=== PATIENT | male | born 2000 | race Caucasian/White ===

== ENCOUNTER 2024-01-10 09:49 | Observation (INO) ==
--- NOTE | 2024-01-09 09:19 | Anesthesiology Consultation ---
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 Chart Review Chart Review: Acceptable Risk for Surgery and Patient NOT seen in Pre Admission Testing History Surgery Operation Date: 01/10/24 11:00 Proposed Procedures p Right Ankle Tibia Shaft Open Reduction - Ameya Jean DO s versus Closed Reduction Intramedullary Nailing - Ameya Jean DO Height/Weight Height: 5 ft 10 in Weight: 83 kg Allergies Allergy/AdvReac Type Severity Reaction Status Date / Time No Known Allergies Allergy Verified 01/10/24 10:22 Medications Home Medications Medication Instructions Recorded Confirmed Last Taken ibuprofen 800 mg tablet 800 mg PO Q8H PRN Pain 01/10/24 01/10/24 01/09/24 23:00 oxycodone 5 mg tablet 5 mg PO Q4H PRN Pain 01/10/24 01/10/24 01/10/24 08:00 Past Medical History Medical History Asthma exercise induced>prn inhaler Past Surgical History Surgical History S/P hardware removal right elbow History of open reduction and internal fixation (ORIF) procedure right elbow>hardware removed Social History Uses zyn nicotine pouches per PAT RN notations. Hx Alcohol Use: Yes Alcohol type: beer alcohol intake frequency: a few times a month Hx Substance Use: No (not currently, former substance user-marijuana per PAT RN notation) Physical Exam Vital Signs Last Vital Signs Pulse 76 01/10/24 10:27 Resp 20 01/10/24 10:27 BP 130/79 01/10/24 10:27 Pulse Ox 97 01/10/24 10:27 O2 Del Method Room Air 01/10/24 10:27
[~2024-01-10 09:49] MED LIST: ROPIVACAINE 0.5% 5 MG/ML 30 ML VIAL ONE; SODIUM CHLORIDE 0.9% PF INJ 10 ML VIAL ONE
[2024-01-10] MEDS ORDERED: PROPOFOL IV EMULSION 10 MG/ML 20 ML VIAL IV ONE ×2 (09:55→09:56)
[2024-01-10] MEDS ORDERED: MIDAZOLAM HCL 1 MG/ML 2ML VIAL ONE (09:56)
[2024-01-10] MEDS ORDERED: ONDANSETRON INJ 2 MG/ML 2 ML VIAL ONE ×2 (09:56→13:37)
[2024-01-10] MEDS ORDERED: DEXAMETHASONE SOD INJ 4 MG/ML VIAL ONE (09:56)
[2024-01-10] MEDS ORDERED: fentaNYL citrate PF 100 MCG/2 ML VIAL ONE ×2 (09:56→14:04)
[2024-01-10] MEDS ORDERED: LIDOCAINE 2% 2 ML VIAL/AMP(20MG/ML) INFIL ONE (09:58)
[2024-01-10] MEDS ORDERED: DROPERIDOL 5 MG/2 ML VIAL IV PRN (10:40)
[2024-01-10] MEDS ORDERED: ATROPINE SULFATE 0.1 MG/ML 10ML SYR IV PRN (10:40)
--- NOTE | 2024-01-10 10:41 | History & Physical Bridge Note ---
Date of Service January 10, 2024 History & Physical Bridge Note I have examined the patient, reviewed the History & Physical and in the interval since the performance of the History & Physical I have noted the following changes of clinical significance: no changes noted 23-year-old individual sustained a closed tibial shaft fracture during a football game. He and his father presented to the office this week. We discussed both operative and nonoperative management. I discussed the risks of both procedures in great detail with the patient and his father. Through shared decision making model, due to the potential for earlier weightbearing, sooner time to radiographic union the patient and his father opted for operative management. We discussed the risks of surgery to include but not limited to loss of life/limb, DVT, infection, nonunion, malunion, hardware complication or failure, prominent hardware, need for additional surgery, knee pain. Patient understands these risks and wishes to proceed. No guarantee was stated or implied.
[2024-01-10] MEDS: LR 15ML/HR IV SCH (10:50)
[2024-01-10] MEDS: ceFAZolin 2000MG 2,000 MG/15 ML SYR IV ONE (11:30)
--- OUTSIDE RECORDS SUMMARY | 2024-01-10 11:38 | External Medical Summary | Summary of Care ---
Author Name Unknown Organization [facility] Address [address] [place] [address] Phone [phone] Care Team Providers Care Group Sales Representative Name Role Phone Unavailable Primary Care Provider Unavailabl e Reason for Referral * Evaluate & Treat - Unlimited Visits (Within 3 days (urgent)) - Pending Review Specialty Diagnoses / Procedures Referred By Contac t Referred To Contact Orthopaedic Surgery / Orthopedics Diagnoses Closed nondisplaced oblique fracture of shaft of right tibia, initial encounter Raissa Blair CRNP [address] [place] [address] Referral ID Status Reason Start Date Expiration Date Visits Requested Visits Authorized [id number] Pending Review Specialty Services Required [phone] Question Answer Referral Priority Within 3 days (urgent) Where should this appointment be scheduled? [facility] What body part is the patient being seen for? Foot/Ankle/Calf - right tibia What condition is the patient being seen for? Fracture including related infection Comments Right tibia fracture due to injury while playing football. Discharge Order Reason for Visit * Reason Comments Leg Pain * Auth/Cert Specialty Diagnoses / Procedures Referred By Contac t Referred To Contact [facility] [address] [place] [address] Phone: [phone] Emergency Medicine [address] [address] Referral ID Status Reason Start Date Expiration Date Visits Re quested Visits Authorized [id number] Encounter Details Date Type Department Care Team ([facility] st Contact Info) Description 01/06/2024 3:53 PM EDT - 01/06/2024 6:14 PM EDT Emergency [facility] Emergency Department ([facility]) [address] [place] [address] Dipak Brooklyn Yaquelin, DO [address] [place] [address] Closed nondisplaced oblique fracture of shaft of right tibia, initial encounter (Primary Dx) Discharge Disposition: Home - Self Care Allergies No known active allergiesdocumented as of this encounter (statuses as of 01/07/2024) Medications Medication Sig Dispensed Refills Start Date End Date Status oxyCODONE-Acetaminophe n 5-325 MG Oral Tablet (Percocet) Take 1 Tablet by mouth every 6 hours as needed for Pain, Severe for up to 6 doses. 6 Tablet 01/06/2024 Active documented as of this encounter (statuses as of 01/07/2024) Active Problems No known active problems documented as of this encounter (statuses as of 01/07/2024) Social History Tobacco Use Types Packs/Day Years Used Date Smoking Tobacco: Never Smokeless Tobacco: Never Alcohol Use Standard Drinks/Week Comments Yes 0 (1 standard drink = 0.6 oz pur e alcohol) occ Utilities Answer Date Recorded Do you have trouble paying y our heating, water, or electric bill? (Adult - for ages 18 years and over) Not on file 08/29/2023 Is your family able to pay t he heat, water, or electric bill? (Household - for ages 0-17 years) Not on file 08/29/2023 Does your family have access to good internet? (Household - for ages 0-17 years) Not on file 08/29/2023 Social Connections Answer Date Recorded How often do you feel lonely or isolated from those around you? (Adult - for ages 18 years and over) Not on file 08/29/2023 Sex and Gender Information Value Date Recorded Sex Assigned at Not on file Gender Identity Not on file Sexual Orientation Not on file Job Start Date Occupation Industry Not on file Not on file Not on file documented as of this encounter Last Filed Vital Signs Vital Sign Reading Time Taken Comments Blood Pressure 126/80 01/06/2024 3:55 PM EDT Pulse 86 01/06/2024 3:55 PM EDT Temperature 36.5 C (97.7 F) 01/06/2024 3:55 PM ED T Respiratory Rate 16 01/06/2024 3:55 PM EDT Oxygen Saturation 100% 01/06/2024 3:55 PM EDT Inhaled Oxygen Concentration - - Weight 81.6 kg (180 lb) 01/06/2024 3:55 PM EDT Height 177.8 cm (5' 10") 01/06/2024 3:55 PM EDT Body Mass Index 25.83 01/06/2024 3:55 PM EDT documented in this encounter ED Notes * Abel Gama RN - 01/06/2024 3:53 PM EDT Pt injured rt lower leg while playing football 1` hr ago. Hurts to bear weight on that leg. Ice pack provided. documented in this encounter Miscellaneous Notes * Pt Handout (on AVS) - Raissa Blair CRNP - 01/06/2024 6:06 PM EDT [id number] Medicine for Pain Medicines can help to block pain, decrease inflammation, and treat related problems. More than 1 medicine may be used to treat your pain. Medicines may be changed as you feel better, or if they causeside effects. Medicines Examples What they do Possible side effects Nonopioid NSAIDs aspirin, a, ibuprofen, naproxen Reduce pain chemicals at the site of pain. NSAIDs can reduce joint and soft tissue inflammation. Nausea, stomach pain and irritation, ulcers, indigestion, bleeding, kidney, and liver problems. Certain NSAIDs may increase the risk for cardiovascular disease and stroke in some people. Smoking and alcohol can make the risk worse. Talk with your healthcare provider. Opioids morphine and similar medicines, often called narcotics Reduce feelings or perception of pain. Used for moderate to severe pain. Nausea, vomiting, itching, drowsiness or sleepiness, constipation, slowed breathing Other medicines corticosteroids, antinausea, antidepressants, antiseizure medicines Reduce swelling, burning or tingling pain, or certain side effects of pain medicines, such as nausea or vomiting Your healthcare provider will explain the possible side effects of these medicines. Anesthetics (local, injected) lidocaine, benzocaine, and medicines used by anesthesiologists Stop pain signals from reaching the brain by blocking feeling in the treated area Nausea, low blood pressure, fever, slowed breathing, dizziness, weakness, fainting, seizures, heart attack When to call your healthcare provider Call your healthcare provider right away (or have a family member call) if any of the following occur: Unrelieved pain Side effects, including constipation or uncontrolled nausea, that interfere with daily activities If you have extreme sleepiness or breathing problems, call 911. Other precautions Ask your healthcare provider or pharmacist how to get rid of your pain medicines safely when youstop using them. Never share your pain medicines with anyone. Store your medicines in a safe place so they can?t be stolen. If you think your medicine has been stolen or lost, tell your healthcare provider right away. Last Reviewed Date: 2021 00:00:00 [id number] [employer]. All rights reserved. This information is not intended as a substitute for professional medical care. Always follow your healthcare professional's instructions. * Pt Handout (on AVS) - Raissa Blair CRNP - 01/06/2024 6:06 PM EDT Images from the original note were not included. [id number] Leg Fracture You have a break (fracture) of the leg. A fracture is treated with a splint, cast, or special boot.It will usually take about 8 to 12 weeks for the fracture to heal, but it can take longer in some cases. If you have a severe injury, you may need surgery to fix it. Home care Follow these guidelines when caring for yourself at home: You will be given a splint, cast, boot, or other device to keep the injured area from moving. Unless you were told otherwise, use crutches or a walker. Don?t put weight on the injured leg until your healthcare provider says you can do so. (You can rent crutches and a walker at many pharmacies and surgical or orthopedic supply stores.) Keep your leg elevated (raised) to reduce pain and swelling. When sleeping, put a pillow under the injured leg. When sitting, support the injured leg so it's above your heart. This is very important during the first 2 days (48 hours). Put an ice pack on the injured area. Do this for 20 minutes every 1 to 2 hours the first day forpain relief. You can make an ice pack by wrapping a plastic bag of ice cubes in a thin towel. As the ice melts, be careful that the cast, splint, or boot doesn?t get wet. You can put the ice pack directly over the splint or cast. Continue using the ice pack 3 to 4 times a day for the next 2 days. Then use the ice pack as needed to ease pain and swelling. Keep the cast, splint, or boot completely dry at all times. Bathe with your cast, splint, or boot out of the water. Protect it with 2 layers of plastic, such as 2 plastic bags, rubber-banded or taped at the top end. Or use a waterproof shield. If a boot or fiberglass cast or splint gets wet, youcan dry it with a department chairperson on the cool setting. You may use acetaminophen or ibuprofen to control pain, unless another pain medicine was prescribed. If you have chronic liver or kidney disease, talk with your healthcare provider before using these medicines. Also talk with your provider if you?ve had a stomach ulcer or gastrointestinal bleeding, or if you take a blood thinner. Don?t put creams or objects under the cast if you have itching. Follow-up care Follow up with your healthcare provider as advised. This is to make sure the bone is healing the way it should. If a splint was put on, it may be converted to a cast at your next visit. X-rays may be taken. You will be told of any new findings that may affect your care. When to get medical advice Call your healthcare provider right away if any of the following occur: The cast or splint cracks The plaster cast or splint becomes wet or soft The fiberglass cast or splint stays wet for more than 24 hours Bad odor from the cast or wound fluid stains the cast Tightness or pain under the cast or splint gets worse Toes become swollen, cold, blue, numb, or tingly You can?t move your toes Skin around cast or splint becomes red or irritated Fever of 100.4F (38C) or higher, or as directed by your healthcare provider Shaking chills Last Reviewed Date: 2022 00:00:00 [id number] [employer]. All rights reserved. This information is not intended as a substitute for professional medical care. Always follow your healthcare professional's instructions. * Pt Handout (on AVS) - Raissa Blair CRNP - 01/06/2024 6:06 PM EDT [id number] Splints and Casts Splints and casts are used to help support and protect many bone and soft tissue injuries. They keep an injured area from moving. Both splints and casts can help fix broken bones and other injuries or conditions by: Increasing blood supply to the injured area Limiting movement to help decrease pain Keeping the area stable to help prevent further injury Decreasing swelling or muscle spasm Splints don?t fully enclose an injured area. This makes them ideal to use for many acute or sudden injuries where swelling is likely to occur. This includes acute fractures or sprains. Splints help to ease pain, protect fractures, and keep an injured area from moving before any orthopedic treatmentis done. Casts fully enclose an injured area in either plaster or fiberglass. Because of this, they are better able to keep the injured area still and hold it in place. But casts can also have more problems. For the best results, both casts and splints are mainly used only for a short time. That?s because keeping an area still for too long can cause problems such as joint stiffness and long-lasting (chronic) pain. If you are put in a splint or cast, you must be watched closely to be sure you recover correctly. There are many different kinds of splints and casts. Your healthcare provider will decide which is best for you. This will depend on the area of your body that is being treated. It will also depend on the stage of your injury, as well as how severe and how stable it is. Each type of splint and castis best suited for certain conditions. There are also different ways of applying splints and casts. Home care Follow your healthcare provider?s instructions when using the splint or cast. Always ask when the splint or cast must be worn. Always ask when the splint or cast can be removed. Check the splint or cast each day, and as needed, for any loose objects. Check the splint or cast for defects such as nicks or tears. Follow the cow rider's or provider?s instructions on how to clean the splint or cast. It may have fabric areas that can be washed. If the splint or cast has straps, tighten the straps if they get loose. The straps should feel firm and secure, but not too tight. The splint or cast should feel comfortable. Your toes should wiggle freely. The provider may also use an elastic bandage. Follow the provider?s instructions on how to use the elastic bandage. Always ask when to use the elastic bandage with, or without, the splint or cast.Always ask when the elastic bandage needs to be worn. Always ask when the elastic bandage needs to be removed. Check how the injured area is healing. Always check the skin around the injury for irritation ordamage caused by the splint or cast. Call your provider if you notice any problems or have any concerns. If you have any questions on how to use the splint or cast, contact your provider. Follow-up care Follow up as advised with your healthcare provider. Depending on the injury, you may need to see anorthopedic or bone doctor. You may also need physical therapy to further check or treat your injuryor condition. When to get medical advice Call your healthcare provider right away if any of these occur: You have more pain, swelling, or instability when wearing the splint or cast. Your injured area has skin that changes color (to red, blue, or purple), sores, blisters, infection, or irritation. The injured region feels cool to the touch. Or you have a numb and tingly feeling when wearing the splint or cast. The splint or cast does not fit correctly. You can?t put weight on the injured area when wearing the splint or cast if you are allowed to do so. You have questions about using the splint or cast. The splint or cast gets wet. Last Reviewed Date: 2021 00:00:00 [id number] [employer]. All rights reserved. This information is not intended as a substitute for professional medical care. Always follow your healthcare professional's instructions. * Pt Handout (on AVS) - Raissa Blair CRNP - 01/06/2024 6:06 PM EDT Images from the original note were not included. [id number] RICE RICE stands for rest, ice, compression, and elevation. Doing these things helps limit pain and swelling after an injury. RICE also helps injuries heal faster. Use RICE for sprains, strains, and severe bruises or bumps. Follow the tips on this handout and begin RICE as soon as possible after an injury. Rest Pain is your body?s way of telling you to rest an injured area. Whether you have hurt an elbow, hand, foot, or knee, limiting its use will prevent further injury and help you heal. Ice Applying ice right after an injury helps prevent swelling and reduce pain. Don?t place ice directlyon your skin. Use a cold pack. Or make an ice pack by putting ice cubes in a plastic bag that seals at the top. Wrap the cold pack or ice pack in a thin cloth. Place it over the injured area. Ice for 10 minutes every 3 hours. Don?t ice for more than 20 minutes at a time. Compression Putting pressure (compression) on an injury helps prevent swelling and provides support. Wrap the injured area firmly with an elastic bandage. If your hand or foot tingles, becomes discolored, or feels cold to the touch, the bandage may be too tight. Rewrap it more loosely. If your bandage becomes too loose, rewrap it. Don't wear an elastic bandage overnight. Elevation Keeping an injury elevated helps reduce swelling, pain, and throbbing. Elevation is most effective when the injury is kept elevated higher than the heart. When to call your healthcare provider Call your healthcare provider if you notice any of the following: Fingers or toes feel numb, tingly, are cold to the touch, or change color. Skin looks shiny or tight. Pain, swelling, or bruising gets worse and isn't improved with elevation. Signs of infection. These include warm skin, redness, fluid leaking, or bad smell coming from the injured body part. Last Reviewed Date: 2021 00:00:00 [id number] [employer]. All rights reserved. This information is not intended as a substitute for professional medical care. Always follow your healthcare professional's instructions. documented in this encounter Plan of Treatment Pending Results Name Type Priority Associated Diagnoses Date /Time Splint Application Procedure Report Routine 01/06/2024 5:50 PM EDT Scheduled Referrals Name Type Priority Associated Diagnoses Orde r Schedule ORTHOPAEDICS REFERRAL OP Referral Within 3 days (urgent) Closed nondisplaced oblique fracture of shaft of right tibia, initial encounter Ordered: 01/06/2024 Health Maintenance Due Date Last Done Comments Depression Screening 2014 HIV Screening 2017 Hepatitis C Screening 02/21/2020 Yearly Wellness Visit 10/30/2020 10/31/2019 , 05/18/2018, 05/17/2017, Additional history exists DTap/Tdap Vaccines (7 - Td or Tdap) 07/31/2023 07/30/2013, 03/01/2006, 05/23/2003, Additional history exists COVID-19 Vaccine ( season) 2023 08/11/2020, 07/14/2020 Influenza Vaccine (FLU shot) (#1) 2023 01/21/2009, 01/21/2009, 12/16/2008, Additional history exists Hepatitis B Vaccine Completed 2002, 2002, 2002 HPV (Gardasil) Vaccine Completed 05/17/2016, 2015 MENINGOCOCCAL (MENACTRA/MENVEO) Completed 05/18/2018, 07/30/2013 Pneumococcal Vaccine: Pediatrics (0 to 5 Years) and At-Risk Patients (6 to 64 Years) Aged Out No longer eligible based on patient's age to complete this topic documented as of this encounter Medical Devices Not on filedocumented as of this encounter Procedures Procedure Name Priority Date/Time Associated Diagnosis Comments SPLINT APPLICATION Routine 01/06/2024 5: 50 PM EDT XR ANKLE 3 OR MORE VIEWS STAT 01/06/2024 5:19 PM EDT XR TIB/FIB 2 VIEWS STAT 01/06/2024 5: 19 PM EDT XR KNEE 4 OR MORE VIEWS STAT 01/06/2024 5:19 PM EDT documented in this encounter Results * XR KNEE 4 OR MORE VIEWS (01/06/2024 5:19 PM EDT) Anatomical Region Laterality Modality Knee, Lower Extremity Computed R adiography 01/06/2024 5:24 PM EDT Narrative 01/06/2024 5:22 PM EDT EXAM: XR TIB/FIB 2 VIEWS; XR KNEE 4 OR MORE VIEWS; XR ANKLE 3 OR MORE VIEWS HISTORY: injury COMPARISON: None available. FINDINGS: Acute obliquely oriented fracture of the distal tibial diaphysis without significant displacement. No significant knee joint effusion. No acute fracture of the knee or ankle. Knee and ankle joint spaces are preserved. The ankle mortise is congruent. IMPRESSION: 1. Acute obliquely oriented fracture of the distal tibial diaphysis without significant displacement. 2. No acute fracture of the knee or ankle. Procedure Note Joi Franco MD - 01/06/2024 EXAM: XR TIB/FIB 2 VIEWS; XR KNEE 4 OR MORE VIEWS; XR ANKLE 3 OR MORE VIEWS HISTORY: injury COMPARISON: None available. FINDINGS: Acute obliquely oriented fracture of the distal tibial diaphysis withoutsignificant displacement. No significant knee joint effusion. No acutefracture of the knee or ankle. Knee and ankle joint spaces are preserved.The ankle mortise is congruent. IMPRESSION: 1. Acute obliquely oriented fracture of the distal tibial diaphysiswithout significant displacement. 2. No acute fracture of the knee or ankle. Raissa [facility] ([facility]) * XR ANKLE 3 OR MORE VIEWS (01/06/2024 5:19 PM EDT) Anatomical Region Laterality Modality Ankle, Lower Extremity Computed Radiography 01/06/2024 5:24 PM EDT Narrative 01/06/2024 5:22 PM EDT EXAM: XR TIB/FIB 2 VIEWS; XR KNEE 4 OR MORE VIEWS; XR ANKLE 3 OR MORE VIEWS HISTORY: injury COMPARISON: None available. FINDINGS: Acute obliquely oriented fracture of the distal tibial diaphysis without significant displacement. No significant knee joint effusion. No acute fracture of the knee or ankle. Knee and ankle joint spaces are preserved. The ankle mortise is congruent. IMPRESSION: 1. Acute obliquely oriented fracture of the distal tibial diaphysis without significant displacement. 2. No acute fracture of the knee or ankle. Procedure Note Joi Franco MD - 01/06/2024 EXAM: XR TIB/FIB 2 VIEWS; XR KNEE 4 OR MORE VIEWS; XR ANKLE 3 OR MORE VIEWS HISTORY: injury COMPARISON: None available. FINDINGS: Acute obliquely oriented fracture of the distal tibial diaphysis withoutsignificant displacement. No significant knee joint effusion. No acutefracture of the knee or ankle. Knee and ankle joint spaces are preserved.The ankle mortise is congruent. IMPRESSION: 1. Acute obliquely oriented fracture of the distal tibial diaphysiswithout significant displacement. 2. No acute fracture of the knee or ankle. Raissa [facility] ([facility]) * XR TIB/FIB 2 VIEWS (01/06/2024 5:19 PM EDT) Anatomical Region Laterality Modality Lower Extremity, TibFib Computed Radiography 01/06/2024 5:24 PM EDT Narrative 01/06/2024 5:22 PM EDT EXAM: XR TIB/FIB 2 VIEWS; XR KNEE 4 OR MORE VIEWS; XR ANKLE 3 OR MORE VIEWS HISTORY: injury COMPARISON: None available. FINDINGS: Acute obliquely oriented fracture of the distal tibial diaphysis without significant displacement. No significant knee joint effusion. No acute fracture of the knee or ankle. Knee and ankle joint spaces are preserved. The ankle mortise is congruent. IMPRESSION: 1. Acute obliquely oriented fracture of the distal tibial diaphysis without significant displacement. 2. No acute fracture of the knee or ankle. Procedure Note Joi Franco MD - 01/06/2024 EXAM: XR TIB/FIB 2 VIEWS; XR KNEE 4 OR MORE VIEWS; XR ANKLE 3 OR MORE VIEWS HISTORY: injury COMPARISON: None available. FINDINGS: Acute obliquely oriented fracture of the distal tibial diaphysis withoutsignificant displacement. No significant knee joint effusion. No acutefracture of the knee or ankle. Knee and ankle joint spaces are preserved.The ankle mortise is congruent. IMPRESSION: 1. Acute obliquely oriented fracture of the distal tibial diaphysiswithout significant displacement. 2. No acute fracture of the knee or ankle. Raissa [facility] ([facility]) documented in this encounter Visit Diagnoses Diagnosis Closed nondisplaced oblique fracture of shaft of right tibia, initial encounter- Primary documented in this encounter Administered Medications Inactive Administered Medications - up to 3 most recent administrations Medication Order MAR Action Action Date Dose Rate Site keTORolac (Toradol) 30 MG/ML inj 30 mg 30 mg, Intramuscular, ONCE, On 01/06/24 at 1700, For 1 dose Given 01/06/2024 4:53 PM EDT 30 mg Deltoid Left Upper documented in this encounter Active and Recently Administered Medications Times are shown in EDT. Scheduled Medication Order 01/04/2024 01/05/2024 01/06/2024 keTORolac (Toradol) 30 MG/ML inj 30 mg (COMPLETED) 30 mg, Intramuscular, ONCE, On 01/06/24 at 1700, For 1 dose 1653 (Given - Provid er: Rohith Lopez RN) documented in this encounter
--- OUTSIDE RECORDS SUMMARY | 2024-01-10 11:38 | External Medical Summary | Summary of Care ---
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 Name Role Phone Unavailable Primary Care Provider Unavailabl e Reason for Visit * Reason Onset Date Comments Imaging Records Request 01/08/2024 Encounter Details Date Type Department Care Team (Late st Contact Info) Description 01/08/2024 Telephone Radiology Film File [address] [place] [address] Support, Imaging Radiology [address] [place], [place] [id number] Imaging Records Request Allergies No known active allergiesdocumented as of this encounter (statuses as of 01/08/2024) Medications Medication Sig Dispensed Refills Start Date End Date Status oxyCODONE-Acetaminophe n 5-325 MG Oral Tablet (Percocet) Take 1 Tablet by mouth every 6 hours as needed for Pain, Severe for up to 6 doses. 6 Tablet 01/06/2024 Active documented as of this encounter (statuses as of 01/08/2024) Active Problems No known active problems documented as of this encounter (statuses as of 01/08/2024) Social History Tobacco Use Types Packs/Day Years [...] on file documented as of this encounter Miscellaneous Notes * Telephone Encounter - Cory Tobar OSA - 01/08/2024 9:10 AM EDT [facility] [place] requesting 01-06-24 Xrays of Ankle, Tib/Fib and Knee images be pushedto their system. [place] Authorization to Release on file. Images pushed to [facility] external connection through PACs Associated report(s) not needed. documented in this encounter Plan of Treatment Upcoming Encounters Date Type Department Care Team (Late st Contact Info) Description 01/10/2024 10:00 AM EDT Office Visit Orthopaedics Oswaldo Paris [address] [place] [id number] Dom Salazar MD [address] [place] [address] Health Maintenance Due Date Last Done Comments [...]
[2024-01-10] MEDS ORDERED: HYDROmorphone INJ 1 MG/ML SYRINGE ONE (12:28)
[2024-01-10] MEDS ORDERED: ROCURONIUM BROMIDE 10 MG/ML 5 ML VIAL IV ONE (12:31)
[2024-01-10] MEDS ORDERED: SUGAMMADEX SODIUM 200 MG/2 ML VIAL IV ONE (13:34)
[2024-01-10] MEDS: HYDROmorphone INJ 1 MG/ML SYRINGE IV PRN (14:12)
[2024-01-10] MEDS: KETOROLAC 30 MG/ML VIAL IV PRN (14:31)
--- NOTE | 2024-01-10 14:31 | Post Operative Brief Note ---
Immediate Post Op Note Date of Surgery January 10, 2024 Pre & Post Diagnosis Operation Date: 01/10/24 11:00 <No data on this case meets the specified criteria> 1. Closed, traumatic, displaced right tibial shaft fracture I identified the patient and participated in the time-out.: Yes Procedure Operation Date: 01/10/24 11:00 <No data on this case meets the specified criteria> 1. Closed reduction and intramedullary nailing right tibia 2. Physician directed fluoroscopy greater than 1 hour Surgeon Ameya Jean DO Certified Ophthalmic Technician none Estimated Blood Loss 100 Findings Consistent with Post-Op Diagnosis Fluids see anesthesia redord Complications none Disposition Accompanied Patient To Recovery: Yes Overlapping Procedure I was present for: the critical portions of procedure. (the entire procedure)
[2024-01-10] MEDS: HYDROmorphone INJ 0.5 MG/0.5 ML SYR IV STA (14:32)
--- NOTE | 2024-01-10 14:34 | Operative Report ---
Post Operative Report Pre & Post Diagnosis Operation Date: 01/10/24 11:00 Preoperative diagnosis: 1. Closed, traumatic, displaced right tibial shaft fracture Postoperative diagnosis: 1. Closed, traumatic, displaced right tibial shaft fracture I identified the patient and participated in the time-out.: Yes Procedure Operation Date: 01/10/24 11:00 1. Closed reduction and intramedullary nailing right tibia 2. Physician directed fluoroscopy greater than 1 hour Surgeon Ameya Jean, Manager Transmission none Estimated Blood Loss 100 Findings Consistent with Post-Op Diagnosis Right tibial shaft fracture Fluids See anesthesia record Specimens None Drains None Anesthesia Type General Complications None immediately apparent Indications This is a 23-year-old male who sustained a closed, traumatic, displaced fracture of his right tibia in a football game on 01/06/2024. 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 He initially presented to the [employer] [place] emergency department where he was placed into a splint and discharged home. He presented to my office on 01/08/2024. At that point I had a very long discussion with the patient and his father regarding this injury. We discussed in great detail the pathoanatomy, pathophysiology, and treatment options. I discussed with him that the patient's tibial shaft fracture is likely amenable to nonoperative management due to the relatively nondisplaced nature of this, however the literature does show increased time to radiographic union as well as increased time to weightbearing. Given this as well as the desire not to be in a cast for an extended period of time, the patient and his father, through shared decision making model, opted for operative management. I did discuss them the risk of operative management to include nonunion, malunion, hardware complication, hardware failure, loss of life, loss of limb, DVT, hardware prominence, need for additional surgery, infection. Patient understood all these risks and wished to proceed. No outcome guarantee was stated or implied. Description of Procedure After informed consent was obtained, the patient was correctly identified in the preoperative holding suite, the operative site was marked with the surgeon's initials, the date of surgery, and the word yes. The patient was then taken to the operative suite. The department of anesthesia administered general anesthesia. The patient was transferred from the [facility] to the operative table. All bony prominences were well-padded. Briefing and timeout was performed. All implants were available and sterile at the time. BRIEFING AND DEBRIEFING: Pre and post operative briefing and debriefing was performed. Introductions were made, goals of the procedure were discussed, questions and concerns were addressed. The operative site markings were identified and appropriate. A time [id number] was performed, the patient's correct identity was confirmed and the correct operative sites were identified. The patients pre-operative antibiotic dosing and administration was confirmed along with other SCIP measures. The team was polled at the completion of the surgery and all team members were in agreement that the procedure was without complication, the counts are correct, the wound class was identified and suggestions for improvement were shared. The patient's right lower extremity splint was removed and areas of planned incisions were shaved of hair. The right lower extremity was then washed with chlorhexidine scrub brush and dried to satisfaction. A bump was placed under the right hip and the right lower extremity was prepped and draped in standard sterile fashion using chlorhexidine. A tourniquet was placed high on the thigh and was never inflated during the case. I began by making a 5 cm incision just proximal to the superior pole the patella with the leg in a semiextended position. We dissected down through the skin and subcutaneous tissue untilwe encountered the peritenon. This was split sharply and then the quadriceps tendon was immediately visible. we located the center of the quadriceps tendon and incised this sharply such that the knee joint was accessible. Hematoma was irrigated and any adhesions were removed. Then, we introduced the plastic cannula and brought in C arm on a perfect AP and perfect lateral to ensure appropriate placement of the starting wire. This was placed such that it was just medial to the lateral tibial spine and just anterior to the articular surface. This was advanced and ensured to be appropriate on both AP and lateral views. Next, the opening reamer was introduced through the cannula and the proximal tibia was opened to an appropriate depth. Next, we advanced the ball-tipped guidewire until it reached the level of the fracture. We then turned our attention to the fracture reduction. A [id number] reduction clamp was used through percutaneous stab incisions orthogonal to the fracture line to squeeze this appropriately. The fracture was compressed adequately on AP and lateral views. The ball-tipped guidewire was then advanced past the fracture to the level of the physeal scar in the distal tibia. This was ensured to be center center on the mortise and a perfect lateral of the ankle. We then measured the pulse of guidewire and selected a 360 mm nail. Next, we began sequential reaming starting at an 8.5 mm reamer and advancing by 0.5 mm sequentially until we had reamed up to a 11.5 mm reamer where appropriate chatter was felt. We ensured to pulse past the fracture to ensure maintained reduction. We then opened the Synthes nail 10 mm x 360 mm Synthes tibial nail. It was assembled on the insertion jig and this was inserted over the ball-tipped guidewire. We used fluoroscopy to ensure that it did not displace the fracture. This was seated distally enough such that 2 screws would be adequate fixation. We then assembled the proximal targeting jig and placed 2 screws from medial to lateral in the proximal segment 1 in the dynamic: 1 in the static hole. Next, we turned our attention distally and using a perfect quinault technique placed to appropriately sized interlocking screws distally from medial to lateral. Yes the leg was then stressed and the fracture did not demonstrate any displacement. We put a 5 mm end cap proximally. We then obtained final fluoroscopic views and saved these to the PACS system. Next, we thoroughly irrigated all wounds. We irrigated 1 L of sterile saline through the knee joint to ensure removal of all reamings. We closed the quadriceps tendon using 0 Vicryl suture followed by 3-0 Monocryl in the peritenon, 2-0 Vicryl in the subcutaneous tissue and a 3-0 nylon using vertical mattresses in the skin. We then used 3-0 nylon using vertical mattress sutures for all poke holes for the interlocking screws and the oeekj-ux-klktt clamps. We then dressed the wounds with Steri-Strips, Betadine soaked Adaptic, 4 x 4 fluffs, sterile Webril, Ap wrap. The patient was placed into his tall cam boot. At the conclusion of the procedure, the patient's lower extremity compartments were soft and easily compressible. The patient tolerated this procedure well and was transferred to the PACU in stable condition. Prior to transportation to PACU, all counts were correct and a briefing was performed at the end of the case. Physician-directed fluoroscopy for less than one hour was performed by myself to verify fracture alignment and the safe placement of all internal fixation. The final images saved to PACs showed views demonstrating satisfactory alignment of the fracture and stable internal fixation. Implant verification was performed by myself by reading and confirming the implant information on the packaging with the team before the sterile implants were opened. I was present for the entire procedure. Plan: Weight bearing status: Foot flat weightbearing right lower extremity Wound care: Keep dressings clean and dry Range of motion: As tolerated VTE Prophylaxis: Lovenox in the hospital, home on aspirin Antibiotics: Perioperative Ancef Pain Control: Multimodal avoiding NSAIDs. If the patient is in severe enough pain tomorrow after his compartments are assessed and ensured to be soft, we will discuss the merits of a block. Vitamin D Replacement: Labs pending Discharge Plan: Overnight observation, likely home tomorrow Follow Up: With myself in 2 weeks. I attest to the content of the Intraoperative Record and any orders documented therein. Any exceptions are noted below.
--- NOTE | 2024-01-10 14:46 | Fluoroscopy Report ---
FL tibia/fibula RT 2V CLINICAL HISTORY: RIGHT ANKLE ORIF VS IM NAILING TECHNIQUE: 19 views were obtained with the C-arm in the OR with the above procedure. Total fluoroscop y time was 4 minutes 35 seconds. Radiation dose was 10.5 mGy. Comparison: None available at the time of this dictation. FINDINGS/IMPRESSION: Intraoperative images were obtained of right tibial nail placement. Please correlate with intraoperative fluoroscopy and operative report. ACT 112: Negative or not required by law. Electronically signed by: Odin Lima M.D. 01/10/2024 2:45 PM
--- NOTE | 2024-01-10 14:48 | Anesthesiology Progress Note ---
Date of Service January 10, 2024 Anesthesia Post Procedure Vital Signs Vital Signs: Temp Pulse Resp BP Pulse Ox O2 Del Method O2 Flow Rate 01/10/24 14:35 83 20 150/80 H 98 Nasal Cannula 2 01/10/24 14:25 88 16 155/82 H 98 Nasal Cannula 2 01/10/24 14:15 82 19 150/80 H 99 Room Air 01/10/24 14:08 36.5 C 107 H 21 149/83 H 100 Room Air 01/10/24 10:27 76 20 130/79 97 Room Air Pain Intensity Right Lower Leg: Pain Intensity: 7 Transfer of Care Handoff Completed per policy Notes Mental Status: alert / awake / arousable Patient Amnestic to Procedure: Yes Nausea / Vomiting: adequately controlled Pain: adequately controlled Airway Patency, RR, SpO2: stable & adequate BP & HR: stable & adequate Hydration State: stable & adequate Anesthetic Complications: no major complications apparent and Pt Satisfied with anesthetic care
[2024-01-10] MEDS ORDERED: ONDANSETRON INJ 2 MG/ML 2 ML VIAL IV PRN (15:30)
[2024-01-10] MEDS: HYDROmorphone INJ 0.5 MG/0.5 ML SYR IV PRN (15:32)
[2024-01-10] MEDS: oxyCODONE HCL IR 5 MG TAB (IMMEDIATE RELEASE) PO PRN (16:26)
[2024-01-10] MEDS: ACETAMINOPHEN 325 MG TAB PO SCH (16:27)
[2024-01-10 17:05] LABS: Creatinine Clr Calc Pharmacy 103.1 ml/min
[2024-01-10] MEDS: BUPIVACAINE/EPINEPHRINE 0.5% MPF 1:200,000 30 ML VIAL ONE (17:05)
[2024-01-10] MEDS: ceFAZolin 2,000 MG/15 ML IV PUSH IV ONE (17:05)
[2024-01-10] MEDS: ENOXAPARIN INJ 40 MG/0.4 ML SYR SQ SCH (17:57)
[2024-01-10] MEDS: DOCUSATE SODIUM 100 MG CAP PO SCH (20:56)
[2024-01-11 00:48] VITALS: O2SAT 96
[2024-01-11] MEDS: HYDROmorphone INJ 0.5 MG/0.5 ML SYR IV PRN (04:02)
--- NOTE | 2024-01-11 08:07 | Orthopedic Progress Note ---
Date of Service January 11, 2024 Assessment & Plan (1) Fracture of tibial shaft, right, closed: Plan Patient is postoperative day #1 status post intramedullary nailing of his right tibial shaft. Patient demonstrates no signs or symptoms consistent with compartment syndrome this morning. I did discuss with him that at this point he would be eligible for a block if he so desires, but he states that he thinks he will be okay and does not wish to have this done. If the patient is able to have his pain well-controlled on oral medications alone, he will be discharged today. He is allowed to foot flat weight-bear on the extremity. He should keep his dressings clean and dry. He will follow-up with me in 2 weeks. He will be discharged on aspirin 81 mg p.o. twice daily for DVT prophylaxis. He should keep his cam boot on at all times Admission and Anticipated Discharge Date Admission Date: January 10, 2024 Subjective Patient seen and evaluated this morning. Reports that he did not sleep perfectly, but did sleep last night. Denies any worsening of his pain. Denies any numbness or tingling. Denies any fevers or chills Review of Systems Review of Systems: Negative unless otherwise noted above Physical Exam Physical Exam: Patient resting comfortably in his cam boot. Wiggles all toes. No pain with passive toe range of motion. Compartment soft and compressible. Sensation intact to light touch SPN, DPN, sural, saphenous and tibial nerves Results & Data Vital Signs (Past 12 Hours) Vital Signs Temp Pulse Resp BP Pulse Ox O2 Del Method 01/11/24 04:40 37.1 C 84 18 147/77 H 96 Room Air 01/11/24 00:47 36.9 C 99 H 18 152/82 H 96 Room Air 01/10/24 21:05 37 C 93 H 16 145/74 H 98 Room Air Diagnostic Findings Intraoperative x-rays reviewed demonstrate satisfactory alignment and stable fixation of tibial shaft fracture
[2024-01-11 08:13] VITALS: BP 144/76; PULSE 76; RESP 19; TEMP 98.4
== END 2024-01-11 13:16 | disposition home or self-care (01) ==
LOC: PACUINP 09:49 → ASU 09:49 → 3E 16:21